=== PATIENT | female | born 1960 | race Caucasian/White ===

== ENCOUNTER 2016-11-09 20:00 | Inpatient (IN) | payer MEDICARE, OTHER ==
--- NOTE | ~2016-11-09 | PN ---
Unit #: [id number] #: [id number] Patient: RAISA VALENTINE [id number] [facility] [address] [place] [address] [id number] MR#: [id number] NAME: RAISA VALENTINE. ROOM: P202 Age: 55 Sex: F Admission Date: 11/09/2016 : 1960 Attending Physician: Janny Williamson M.D. Admitting Physician: Janny Williamson M.D. Primary Care Physician: Primary Care Physician Lexi RECIO NOTES DATE OF SERVICE 11/13/2016 DISCUSSION Ms. Valentine is a 55-year-old white female with substance abuse and mood disorder who was seen today. Chart was reviewed and case was discussed with staff. She was lying in her bed and was polite and pleasant and reports that she has been having struggle with sleep and had some persistent anxiety and had been working with web content & social media manager about planning to go to long-term rehab level of care. Meanwhile, she has been taking the medications and has been tolerating them fairly well. MENTAL STATUS EXAMINATION Middle-aged white female who is casually dressed with fair personal hygiene, appears to be in no acute distress or discomfort. The patient was awake and alert with intact orientation. Her mood is anxious with congruent affect. She denies any suicidal or homicidal ideations. Her insight and judgment remain slightly impaired. TREATMENT PLAN 1. We will continue her on her current medications and treatment protocol. We will monitor her response to the medications and make further adjustments as needed. 2. We will continue to follow up. Dictated by... Lulu Marin/william TD: 11/14/2016 07:46 JOB #: [id number] Unit #: [id number] #: [id number] Patient: RAISA VALENTINE LIBAN RECIO NOTES Page 1 of 1 X Janny Williamson MD PROGRESS NOTE
--- NOTE | ~2016-11-09 | PN ---
Unit #: [id number] #: [id number] Patient: RAISA VALENTINE [id number] [facility] [address] [place] [address] [id number] I MR#: [id number] NAME: RAISA VALENTINE. ROOM: P202 Age: 55 Sex: F Admission Date: 11/09/2016 : 1960 Attending Physician: Janny Williamson M.D. Admitting Physician: Janny Williamson M.D. Primary Care Physician: Primary Care Physician Lexi RECIO NOTES DATE OF SERVICE 11/14/2016 DISCUSSION Ms. Valentine is a 55-year-old white female who was seen today. Chart was reviewed and case was discussed with the staff. She has been anxious, withdrawn, and rather seclusive to herself. Meanwhile, she has been cooperative with the treatment recommendations and has been taking the medications and tolerating them fairly well with no reported side effects. MENTAL STATUS EXAMINATION Middle-aged white female who is casually dressed with fair personal hygiene, appears to be in no acute distress or discomfort. She was awake and alert on interaction with intact orientation. Her mood is anxious with congruent affect. She denies any suicidal or homicidal ideations. Her insight and judgment remain slightly impaired. TREATMENT PLAN We will continue her on her current treatment protocol. We will monitor her response and consider doing discharge planning tomorrow. Dictated by... Janny Williamson M.D. IAA/bzg TD: 11/15/2016 07:08 JOB #: [id number] [facility] PROGRESS NOTES Page 1 of 1 X Janny Williamosn MD PROGRESS NOTE
--- NOTE | ~2016-11-09 | PN ---
Unit #: [id number] #: [id number] Patient: RAISA OQUENDO [id number] [facility] [address] [place] [address] [id number] MR#: [id number] NAME: RAISA OQUENDO. ROOM: P202 Age: 55 Sex: F Admission Date: 11/09/2016 : 1960 Attending Physician: Janny Williamson M.D. Admitting Physician: Janny Williamson M.D. Primary Care Physician: Primary Care Physician Lexi LOUIE PROGRESS NOTES DATE OF SERVICE: 11/11/2016 SUBJECTIVE Ms. Clemens is a 55-year-old white female who was seen today and chart was reviewed and case was discussed with the staff. She has been anxious, withdrawn, and rather seclusive to herself. Meanwhile, she has been cooperative with treatment recommendations and has been taking the medications and tolerating them fairly well with no reported side effects. MENTAL STATUS EXAMINATION Middle-aged white female who was casually dressed with fair personal hygiene, appears to be in no acute distress or discomfort. She was awake and alert with impaired attention and concentration. Her mood was anxious with a congruent affect. Her speech was slow and goal directed. She denies any suicidal or homicidal ideations, and also denies any auditory or visual hallucinations. Her insight and judgment remain slightly impaired. TREATMENT PLAN We will continue her on her current treatment protocol. We will monitor her response and make further adjustments as needed. Dictated by... Lulu Marin/guerita TD: 11/12/2016 01:39 JOB #: [id number] [facility] PROGRESS NOTES Page 1 of 1 X Janny Williamson MD PROGRESS NOTE
--- NOTE | ~2016-11-09 | PA ---
Unit #: [id number] #: [id number] Patient: RAISA VALENTINE [id number] [facility] [address] [place] [address] [id number] I MR#: [id number] NAME: RAISA VALENTINE. ROOM: P202 Age: 55 Sex: F Admission Date: 11/09/2016 : 1960 Date of Assessment: 11/10/2016 Attending Physician: Janny Williamson M.D. Admitting Physician: Janny Williamson M.D. Primary Care Physician: Primary Care Physician No PSYCHIATRIC ASSESSMENT DATE OF SERVICE 11/10/2016. IDENTIFYING DATA Ms. Valentine is a 55-year-old white female with history of bipolar disorder and alcohol dependence, who is known to us from previous encounter, is a resident of [place], [place], and was self-referred to the hospital on a voluntary basis. CHIEF COMPLAINT "I'm bipolar and I have PTSD." HISTORY OF PRESENT ILLNESS Ms. Valentine is a 55-year-old white female, who was self-referred to the hospital reporting that she has bipolar and PTSD, "I have been using crack cocaine and alcohol. I'm feeling very suicidal today. I think if I don't stay here, I would try to kill myself." She reports having suicidal ideation and a plan to overdose on drugs and alcohol to kill herself. She reports that she receives disability due to mental health issues and that she lives alone and that she has stable housing, but poor social support system and does report increasing depression, anxiety, irritability, restlessness, feelings of hopelessness and helplessness, and suicidal ideations with an intent and plan and also reports that she has attempted to overdose 3 times in the past and has been hospitalized and has a history of suicidal ideations, intent, plan, and attempt. SUBSTANCE ABUSE HISTORY The patient reports history of alcohol, cannabis, and cocaine abuse, though alcohol appears to be her drug of choice as she reports that she has been drinking a pint to a fifth a day and has been using crack cocaine on a regular basis as well. PAST PSYCHIATRIC HISTORY The patient has had a history of multiple inpatient chemical dependency and [facility], and [facility]; however, review of the medical records indicate currently she is not active in any treatment program, is not seeing a psychiatrist, and is not taking any psychotropic medications. PAST MEDICAL HISTORY Hepatitis C and fibromyalgia. ALLERGIES Unit #: [id number] #: [id number] Patient: RAISA VALENTINE Lamictal and lithium. PERSONAL AND SOCIAL HISTORY A 55-year-old white female, who reports that she is single, disabled, and lives alone and has poor social support system. MENTAL STATUS EXAMINATION Middle-aged white female, who was casually dressed with fair personal hygiene, appears to be in no acute distress or discomfort. She was awake and alert on interaction with intact orientation to time, place, and person. Her mood was anxious and depressed with a congruent affect. Her speech was slow and restricted in content. She reports having suicidal ideations, but denies any homicidal ideations and also denies any auditory or visual hallucinations. Her insight and judgment remain significantly impaired. DIAGNOSTIC IMPRESSION Psychiatric: Bipolar disorder, most recent episode depressed, recurrent, moderate, without psychotic features; alcohol dependence, moderate, in acute withdrawals; and cocaine dependence, moderate. Medical: Hepatitis C and fibromyalgia. Stressors: Moderate psychosocial stressors. TREATMENT PLAN 1. The patient has presented with a history of mood disorder and has been decompensating and we will recommend inpatient hospitalization for safety and stabilization. We will start her back on her home medications. We will adjust the medications and monitor response. 2. Supportive therapy was provided to the patient. 3. Safe, structured, and nourishing environment will be provided. ESTIMATED LENGTH OF STAY 5 to 7 days. ABILITY TO HELP SELF Limited. WILLINGNESS TO HELP SELF The patient appears to be willing to help self. STRENGTHS 1. Communicative. 2. Cooperative. PROBLEMS 1. Chronic dysphoric symptoms. 2. Chronic chemical dependency. 3. Poor social support system. DISCHARGE CRITERIA This will be contingent upon the patient's ability to show resolution of her depression and anxiety and her ability to stay safe to herself, particularly after discharge from the hospital. Dictated by... Janny Williamson M.D. Unit #: [id number] #: [id number] Patient: RAISA VALENTINE IAA/modl TD: 11/10/2016 14:07 JOB #: [id number] PSYCHIATRIC ASSESSMENT Page 1 of 1 X Janny Williamson MD PSYCHIATRIC ASSESSMENT
--- NOTE | ~2016-11-09 | TN ---
Unit #: [id number] #: [id number] Patient: RAISA VALENTINE [id number] [place] [address] [id number] MR#: [id number] NAME: RAISA VALENTINE. ROOM: P202 Age: 56 Sex: F Admission Date: 11/09/2016 : 1960 Discharge Date: 11/15/2016 Attending Physician: Janny Williamson M.D. Primary Care Physician: Primary Care Physician No LOC TRANSFER NOTE DATE OF SERVICE: 11/20/2016 HISTORY OF PRESENT ILLNESS Ms. Valentine is a 55-year-old white female who was stepped down to the outpatient treatment program from the adult inpatient psychiatric unit, where she was hospitalized under my care at [facility] to 11/15/2016 with dual diagnosis of bipolar disorder and alcohol and cocaine dependence and was medically detoxed and stabilized on medication and stepped down to the outpatient treatment program. When seen by me, the patient reports doing fairly well, though still has been having some persistent anxiety, restlessness, and irritability, and states that she got out of the hospital and has been doing fairly well and has not relapsed and has been maintaining her status on her medications. She does report some depression and anxiety, but denies any suicidal ideations, intent, or plan. SUBSTANCE ABUSE HISTORY The patient has a history of alcohol and cocaine dependence and more recently, cocaine has been her drug of choice. PAST PSYCHIATRIC HISTORY The patient has had a history of inpatient and outpatient psychiatric treatment. Currently, she just got out of [facility] and has been on a combination of psychotropic medications. PAST MEDICAL HISTORY No acute or chronic medical illnesses. PERSONAL AND SOCIAL HISTORY A 55-year-old white female who reports that she is and single and lives by herself and has fairly decent social support system. MENTAL STATUS EXAMINATION Middle-aged white female who was casually dressed with fair personal hygiene, appears to be in no acute distress or discomfort. She was awake and alert on interaction with intact orientation. Her mood was anxious and depressed with a congruent affect. Her speech was slow and goal directed. She denies any suicidal or homicidal ideations and also denies any auditory or visual hallucinations. Her insight and judgment remain slightly impaired. DIAGNOSTIC IMPRESSION Psychiatric: Bipolar disorder, most recent episode depressed, recurrent, Unit #: [id number] #: [id number] Patient: RAISA VALENTINE moderate, without psychotic features; cocaine dependence, moderate; alcohol dependence, moderate. Medical: None. Stressors: Moderate psychosocial stressors. TREATMENT PLAN 1. The patient has presented with a history of substance abuse and mood disorder and has been decompensating. We will recommend inpatient hospitalization for safety and stabilization. We will start her back on her home medications. We will adjust the medications and monitor response. 2. Supportive therapy was provided to the patient. ESTIMATED LENGTH OF STAY 14 to 21 days. ABILITY TO HELP SELF Limited. WILLIGNESS TO HELP SELF The patient appears to be willing to help self. STRENGTHS 1. Communicative. 2. Cooperative. PROBLEMS 1. Chronic dysphoric symptoms. 2. Poor social support system. DISCHARGE CRITERIA This will be contingent upon the patient's ability to show resolution of her depression and anxiety and her ability to stay safe to herself, particularly after discharge from the program. Dictated by... Lulu Marin/guerita TD: 11/20/2016 22:59 JOB #: [id number] LOC TRANSFER NOTE Page 1 of 1 X Janny Williamson MD X LOC TRANSFER NOTE
--- NOTE | ~2016-11-09 | HP ---
Unit #: [id number] #: [id number] Patient: JALYEEN OQUENDO [id number] [place] [address] [id number] MR#: [id number] NAME: JAYLEEN OQUENDO. ROOM: P202 Age: 55 Sex: F Admission Date: 11/09/2016 : 1960 Attending Physician: Janny Williamson M.D. Admitting Physician: Janny Williamson M.D. Primary Care Physician: Primary Care Physician No HISTORY AND PHYSICAL HISTORY OF PRESENT ILLNESS Jayleen is a 55-year-old female admitted on 11/09/[address] [place] [address] for bipolar disorder and detox from alcohol. PAST MEDICAL HISTORY 1. Hepatitis A 2. Fibromyalgia 3. Obesity PAST SURGICAL HISTORY 1. Partial hysterectomy 2. section x 1 3. Tonsillectomy SOCIAL HISTORY No tobacco use. Does drink a fifth of alcohol daily and uses crack cocaine. He is currently and living alone. FAMILY HISTORY Noncontributory. REVIEW OF SYSTEMS CONSTITUTIONAL: No fever or chills. HEENT: Denies any sore throat, ear pain or runny nose. CARDIOVASCULAR: Denies chest pain, irregular heart rhythm or palpitations. CHEST: Denies shortness of breath or cough. No hemoptysis. GASTROINTESTINAL: Denies nausea, vomiting, diarrhea or chronic constipation. ENDOCRINE: Denies history of increased thirst or urination. No recent significant weight loss or gain. GENITOURINARY: Denies dysuria, frequency, or hematuria. SKIN: Denies any rashes. HEMATOLOGIC: Denies history of increased bleeding or bruising. MUSCULOSKELETAL: Denies any hot, swollen joints. No generalized muscle pain. NEUROLOGIC: Denies problems with vision or speech. No frequent, severe headaches. No numbness, tingling or weakness in any extremities. Denies loss of bladder or bowel control. CURRENT MEDICATIONS Unit #: [id number] #: [id number] Patient: JAYLEEN OQUENDO None. ALLERGIES [place] and Lamictal PHYSICAL EXAMINATION GENERAL: Alert, oriented, in no acute distress. VITAL SIGNS: Blood pressure 135/84, heart rate 90, respirations 20, temperature 98.4. HEIGHT: 5 foot 1 inches. WEIGHT: 198 pounds. SKIN: Warm and dry without rash or lesion. HEENT: Normocephalic. TMs not viewed. Oral and nasal passages clear. Conjunctivae clear. PERRLA. EOMs intact. NECK: Supple without lymphadenopathy or thyromegaly. HEART: Regular rate and rhythm without murmur. LUNGS: Clear. ABDOMEN: Soft, nontender, without masses or hepatosplenomegaly. : Not done. EXTREMITIES: No evidence of cyanosis, clubbing or edema. Moves all without focal deficit. NEUROLOGICAL: Grossly within normal limits. Cranial Nerves: II: Visual rg are intact. III, IV AND : Extraocular movements are intact. Pupils are equal, round and reactive to light. V: Facial sensation is grossly normal. VII: Facial movements and expression are normal. VIII: Auditory acuity grossly intact. IX, X: Uvula is midline. Phonation is normal. XI: Patient shrugs shoulders and turns head normally. XII: Tongue protrudes in the midline. Sensory and Motor Function: Sensory and motor sensation is grossly normal. Motor: moves all extremities well. Coordination: Gait is normal. Deep Tendon Reflexes: Intact. IMPRESSION 1. Psychiatric admission. 2. Hepatitis A. 3. Fibromyalgia. 4. Obesity. RECOMMENDATIONS Psychiatric, per psychiatrist. MEDICAL: I see no contraindications to participating in facility's activities. MEDICAL PROGNOSIS Good. MEDICAL CONDITION Stable. Dictated by... Elysia MeridaPBurkeRAzul Unit #: [id number] #: [id number] Patient: JAYLEEN OQUENDO MADDIE/janeth TD: 11/10/2016 22:31 JOB #: [id number] HISTORY AND PHYSICAL Page 1 of 1 X DEBRA PETERSEN APRN HISTORY AND PHYSICAL
--- NOTE | ~2016-11-09 | DS ---
Unit #: [id number] #: [id number] Patient: [facility]ENT[facility] [id number] [facility] [address] [place] [address] [id number] I MR#: [id number] NAME: RAISA VALENTINE. ROOM: [facility] Age: 55 Sex: F Admission Date: 11/09/2016 : 1960 Discharge Date: 11/15/2016 Attending Physician: Janny Williamson M.D. Primary Care Physician: Primary Care Physician No DISCHARGE SUMMARY IDENTIFYING DATA Ms. Valentine is a 55-year-old white female with a history of mood disorder, who is known to us from previous encounter and was self-referred to the hospital on a voluntary basis. DISCHARGE DIAGNOSES Psychiatric: Bipolar disorder, most recent episode depressed, recurrent, moderate, without psychotic features; alcohol dependence, moderate and acute withdrawals; cocaine dependence, moderate. Medical: Hepatitis C, fibromyalgia. Stressors: Moderate psychosocial stressors. HISTORY OF PRESENT ILLNESS Please see initial psychiatric evaluation for details. PAST PSYCHIATRIC HISTORY Please see initial psychiatric evaluation for details. PAST MEDICAL HISTORY Please see initial psychiatric evaluation for details. HOSPITAL COURSE The patient was admitted to the adult chemical dependency unit at [facility] and was oriented to the hospital environment. Routine p.r.n. medications were initiated, and she was started on the alcohol detox protocol and was closely monitored. She was also started on Risperdal as a mood stabilizer and was seen to be doing fairly well and was able to come out of the detox without any complications and was willing to continue treatment on an outpatient basis, and as such, it was decided that she will be discharged home and will continue treatment on an outpatient basis. DISCHARGE MEDICATIONS Risperdal 0.5 mg b.i.d. DISCHARGE CONDITION Stable. PROGNOSIS Fair. Dictated by... Janny Williamson M.D. Unit #: [id number] #: [id number] Patient: RAISA VALENTINE IAA/modl TD: 11/15/2016 07:20 JOB #: [id number] DISCHARGE SUMMARY Page 1 of 1 X Janyn Williamson MD X DISCHARGE SUMMARY
--- NOTE | ~2016-11-09 | PN ---
Unit #: [id number] #: [id number] Patient: RAISA VALENTINE [id number] [facility] [address] [place] [address] [id number] I MR#: [id number] NAME: RAISA VALENTINE. ROOM: P202 Age: 55 Sex: F Admission Date: 11/09/2016 : 1960 Attending Physician: Janny Williamson M.D. Admitting Physician: Janny Williamson M.D. Primary Care Physician: Primary Care Physician Lexi RECIO NOTES DATE 11/12/2016 DISCUSSION Ms. Valentine is a 55-year-old white female who was seen today and chart was reviewed and case was discussed with the staff. She was seen to be anxious, withdrawn, depressed, unkempt, disheveled and seclusive to herself with minimal interaction and has not been coming out of her room (1) appeared to be actively participating in activities of daily living and has been exhibiting significant depressive symptoms. Per meanwhile she has been taking medications and tolerating them fairly well with no reported side effects. MENTAL STATUS EXAMINATION Middle-aged white female who was casually dressed with fair personal hygiene, appears to be in no acute distress or discomfort. She was awake and alert with impaired attention and concentration. Her mood was anxious and depressed with congruent affect. Her denies any current suicidal or homicidal ideation. Her insight and judgement remains slightly impaired. TREATMENT PLAN 1. We will continue her on her current medications and treatment protocol. We will monitor her response to the medications. and make further adjustments as needed. 2. We will continue to follow up. Dictated by... Lulu Marin/janeth TD: 11/13/2016 04:13 JOB #: [id number] Unit #: [id number] #: [id number] Patient: RAISA VALENTINE LIBAN RECIO NOTES Page 1 of 1 X Janny Williamson MD PROGRESS NOTE
[2016-11-10 12:16] LABS: BASOPHIL# 0.1 X10e3 (0-0.3); BASOPHIL% 0.8 % (0-2.5); EOSINOPHIL# 0.2 X10e3 (0-0.7); EOSINOPHIL% 2.5 % (0.0-7.0); HEMATOCRIT 43.4 % (35.0-45.0); HEMOGLOBIN 14.4 gm/dL (12.0-16.0); LYMPHOCYTE# 3.9 X10e3 (1.0-3.5); MEAN CELL VOLUME 88.7 FL (83-96); MEAN CORPUSCULAR HEMOGLOBIN 29.5 PG (28-34); MEAN CORPUSCULAR HGB CONC 33.3 g/dL (30-36); MEAN PLATELET VOLUME 8.5 FL (6.5-11.5); MONOCYTE# 0.5 X10e3 (0-1.0); MONOCYTE% 6.7 % (3.0-12.0); NEUTROPHIL# 2.7 X10e3 (1.5-7.1); PLATELET COUNT 182 X10e3 (140-420); RED BLOOD COUNT 4.89 X10e (3.90-5.30); RED CELL DISTRIBUTION WIDTH 12.7 % (11.0-15.5); WHITE BLOOD COUNT 7.3 X10e3 (4.0-10.5)
[2016-11-10 12:17] LABS: DIFF IND YES
[2016-11-10 12:18] LABS: ALBUMIN SERUM 3.7 g/dL (3.5-5.0); BILIRUBIN,TOTAL 1.8 mg/dL (0.2-2.0); CALCIUM SERUM 9.2 mg/dL (8.4-10.2); CREATININE SERUM 0.9 mg/dL (0.6-1.4); POTASSIUM 3.3 mmol/L (3.5-5.1); PROTEIN TOTAL SERUM 6.7 g/dL (6.0-8.3)
[2016-11-10 13:00] LABS: PLATELET ESTIMATE NORMAL (NORMAL); RBC NORMAL YES
[2016-11-11 09:55] LABS: URINE APPEARANCE TURBID; URINE BLOOD NEG (NEG); URINE COLOR DK YELLOW; URINE GLUCOSE NEG (NEG); URINE KETONE NEG (NEG); URINE LEUKOCYTE ESTERASE NEG (NEG); URINE NITRATE NEG (NEG); URINE PROTEIN NEG (NEG); URINE SPECIFIC GRAVITY 1.026 (1.003-1.035)
[2016-11-11 10:05] LABS: URINE BILIRUBIN NEG (NEG)
[2016-11-11 10:26] LABS: AMPHETAMINE NEG (NEG); BARBITURATES NEG (NEG); BENZODIAZEPINES POS (NEG); COCAINE POS (NEG); MARIJUANA NEG (NEG); OPIATES NEG (NEG); TRICYCLIC ANTIDEPRESSANTS NEG (NEG); U METHADONE NEG (NEG)
== END 2016-11-15 09:55 | disposition home or self-care (01) | DRG 885 ==
LOC: P2S 20:30
PROVIDERS: Psychiatry & Neurology Psychiatry
PROC: HZ2ZZZZ Detoxification Services for Substance Abuse Treatment (ICD-10-PCS; principal; 2016-11-09)
DX: F31.32 Bipolar disorder, current episode depressed, moderate (principal); F14.20 Cocaine dependence, uncomplicated; F10.230 Alcohol dependence with withdrawal, uncomplicated; B15.9 Hepatitis A without hepatic coma; B19.20 Unspecified viral hepatitis C without hepatic coma; M79.7 Fibromyalgia; F41.9 Anxiety disorder, unspecified; E66.9 Obesity, unspecified
CPT/HCPCS: 80053; 80307; 81003; 84703; 85025; 86592